=== PATIENT | male | born 1980 | race Two or more races ===

== ENCOUNTER 2022-06-03 16:51 | Emergency (ER) | payer OTHER ==
[~2022-06-03] VITALS: Ht 165.1 cm; Wt 64.0 kg
== END 2022-06-03 19:11 | disposition home or self-care (01) ==
LOC: ER 16:51
DX: S93.402A Sprain of unspecified ligament of left ankle, initial encounter (principal); X58.XXXA Exposure to other specified factors, initial encounter; Y93.9 Activity, unspecified; Y92.9 Unspecified place or not applicable